=== PATIENT | female | born 1975 | race Asian ===

== ENCOUNTER 2023-03-15 02:14 | Day surgery (SDC) | payer OTHER, SELFPAY ==
[2023-02-27 11:08] VITALS: BMI 23.8
[2023-03-15] MEDS: LACTATED RINGERS 1,000 ML 150 ML IV CONT (08:03)
--- NOTE | 2023-03-15 08:44 | WPDANESEPPF ---
Anes - Initial Pre Proc Eval Procedure: Operation Date: 03/15/23 09:00 Proposed Procedures p Esophagogastroduodenoscopy & Colonoscopy - Ramy Noe MD Date/Time: 03/15/23 08:44 Surgeon: Ramy Noe MD Pre Op Diagnosis: hx colon polyps, GERD, dyspepsia,epigastric pain Patient Data Age: 47 Gender: F Height: 1.6 m Weight: 60 kg Allergies Allergy/AdvReac Type Severity Reaction Status Date / Time No Known Allergies Allergy Verified 03/15/23 07:47 Home Medications Medication Instructions Recorded Confirmed Type levonorgestrel 21 mcg/24 hours (8 1 device intrauterine ONCE 04/21/22 02/27/23 History yrs) 52 mg intrauterine device (Mirena) Patient hx anesthesia problems: none Family hx anesthesia problems: none Results Review: All pre-operative results and documents have been reviewed as part of the pre-operative evaluation. 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 Gender identity (if verbalized by the patient): Female Sexual Orientation (if Verbalized by the Patient): Straight or Heterosexual Spiritual care concerns: No Anes - Eval Final PreProcedure Day of Procedure 03/15/23 08:44 Patient weight: normal Heart: regular rate and rhythm Lungs: clear to auscultation Airway: Mallampati scale class II Neurological: alert and oriented Last oral intake: >/= 8 hours ASA classification: I Emergent: no Anesthetic plan: proceed Anesthesia type and monitoring: general GIVS and standard monitoring Results Review: All pre-operative results and documents have been reviewed as part of the pre-operative evaluation. Informed Consent: The patient's anesthetic plan and its attendant risks and benefits were discussed with the patient/family/POA. Questions were solicited and answers provided to the satisfaction of the patient/family/POA.
--- NOTE | 2023-03-15 08:46 | PM.HPGS ---
History of Present Illness History of Present Illness Consent: Risks, benefits, and alternatives have been discussed and questions answered. Patient agrees to proceed with procedure. Chief complaint: hx colon polyps, GERD, dyspepsia,epigastric pain Narrative: Noah Rivas is a 47 year old female here for egd and colonoscopy, she had H pylori in 2016 (found by blood work) and treated, then 2018 had egd and colonoscopy at [facility] by Dr Herzog (records reviewed), normal egd including gastric bx (no h pylori), colonoscopy only small polyp removed in ascending colon, had normal colon random bx. Lately with dyspepsia, sensation of bloating after eating, not longer using omeprazole. Review of Systems Constitutional: Constitutional: Denies headache(s) and Denies weakness Eyes: Eyes: Denies blurry vision ENT: Reports Normal hearing present, Denies headache(s) and Denies neck pain Cardiovascular: Cardiovascular: Denies chest pain and Denies dyspnea Respiratory: Respiratory: Denies dyspnea Gastrointestinal: Gastrointestinal: Reports no additional gastrointestinal complaints Genitourinary: Genitourinary: Denies dysuria Musculoskeletal: Musculoskeletal: Denies neck pain Integumentary/Breasts: Skin/Breast: Denies dry skin Neurologic: Reports Normal hearing present, Denies headache(s) and Denies weakness Psychiatric: Psychiatric: Denies anxiety Endocrine: Endocrine: Denies change in body appearance Hematologic/Lymphatic: Hematologic/Lymphatic: Denies easy bleeding Allergic/Immunologic: Allergic/Immunologic: Denies urticaria PMFSH Past Medical History Medical History (Updated 01/12/23 @ 09:45 by Ramy Noe MD) Bloating Colon polyp Dyspepsia Encounter for insertion of mirena IUD 07/2017 Encounter for IUD removal and reinsertion Family History Family History Mother Family history of osteoporosis Social History Social History Smoking status: Never smoker Alcohol intake: current Alcohol use details: socially Substance use: never Substance use type: does not use Living arrangements: with family Occupation/Education: occupation Additional occupation/education comments: homemaker Gender identity (if verbalized by the patient): Female Sexual Orientation (if Verbalized by the Patient): Straight or Heterosexual Spiritual care concerns: No Meds Home Medications and Allergies Home Medications Medication Instructions Recorded Confirmed Type levonorgestrel 21 mcg/24 hours (8 1 device intrauterine ONCE 04/21/22 02/27/23 History yrs) 52 mg intrauterine device (Mirena) Allergies Allergy/AdvReac Type Severity Reaction Status Date / Time No Known Allergies Allergy Verified 03/15/23 07:47 Exam Const: General: comfortable and no acute distress HENMT: Face/Nose/Sinus: Normal nares present Eyes: General: appearance normal, both eyes and all related structures Neck: Neck: no JVD Resp: Auscultation: clear to auscultation bilaterally Cardio: Rate: regular rate Rhythm: regular rhythm GI: Inspection: non-distended GI Palp: Yes Soft to palpation Skin: General skin exam: normal color Neuro: General: gait normal Speech: normal speech Extrem: General: normal to inspection Psych: Mental Status: mental status grossly normal Assessment and Plan Assessment and plan (1) Bloating: Code(s): R14.0 - Abdominal distension (gaseous) Status: Acute Assessment and Plan: egd with bx (2) Dyspepsia: Code(s): R10.13 - Epigastric pain Status: Acute (3) Colon polyp: Code(s): K63.5 - Polyp of colon Status: Acute Assessment and Plan: colonoscopy
--- NOTE | 2023-03-15 09:01 | SUR.OPER ---
EGD start 854 end 858, Colonoscopy start 903
[2023-03-15 09:17] VITALS: BP 120/80; PULSE 79; RESP 16; O2SAT 98
[2023-03-15 09:27] VITALS: BP 124/85; PULSE 81; RESP 14; O2SAT 100
[2023-03-15 09:37] VITALS: BP 132/79; PULSE 84; RESP 19; O2SAT 99
== END 2023-03-15 09:42 | disposition home or self-care (01) ==
PROVIDERS: PCP Family Medicine; Visit Provider Internal Medicine Gastroenterology
PROC: 0DJ08ZZ Inspection of Upper Intestinal Tract, Via Natural or Artificial Opening Endoscopic (ICD-10-PCS; CPT 43235; principal; 2023-03-15 09:00)
DX: Z12.11 Encounter for screening for malignant neoplasm of colon (principal); K63.5 Polyp of colon; K57.30 Diverticulosis of large intestine without perforation or abscess without bleeding; R14.0 Abdominal distension (gaseous); K30 Functional dyspepsia
CPT/HCPCS: 45380; 43239; 88305; J2704; J7120